=== PATIENT | female | born 1965 | race American Indian/Alaskan Native ===

== ENCOUNTER 2020-09-20 01:48 | Emergency (ER) | payer OTHER ==
[~2020-09-20] VITALS: Ht 165.1 cm; Wt 77.1 kg
[~2020-09-20 01:48] MED LIST: CALCIUM 500 +1 EAC2 PO; FISH OIL 1,0001 EAC2 NG; FLONASE ALLERG9.9 ML; IBUPROFEN800 MG PO; LEVOTHYROXINE50 MCG PO; SIMVASTATIN5 MG PO
[2020-09-20] MEDS ORDERED: ZOFRAN4 MG PO (03:57)
== END 2020-09-20 04:07 | disposition home or self-care (01) ==
LOC: ED 01:48
DX: K52.9 Noninfective gastroenteritis and colitis, unspecified (principal); E03.9 Hypothyroidism, unspecified; E78.5 Hyperlipidemia, unspecified; Z88.0 Allergy status to penicillin; Z88.1 Allergy status to other antibiotic agents; Z88.2 Allergy status to sulfonamides; Z88.8 Allergy status to other drugs, medicaments and biological substances; Z79.899 Other long term (current) drug therapy
CPT/HCPCS: 74177; 80053; 81001; 83690; 85025; 99284-25; J1170; J2405; J2550; Q9967